=== PATIENT | male | born 1955 | race American Indian/Alaskan Native ===

== ENCOUNTER 2017-07-25 08:10 | Day surgery (SDC) | payer OTHER ==
[2017-07-25] MEDS ORDERED: NACL ONE (08:58)
[2017-07-25] MEDS ORDERED: LOPRESSOR IV ONE ×2 (09:14)
[2017-07-25] MEDS ORDERED: ATROPINE 0.1% (CARDIAC) ONE (09:15)
[2017-07-25] MEDS ORDERED: NITROSTAT SL ONE (09:45)
[2017-07-25 10:20] VITALS: BP 118/80
--- NOTE | 2017-07-25 12:26 | Cat Scan Report ---
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 COMPARISON: None similar. FINDINGS: A limited chest CT scan was carried out for calcium evaluation of the coronary arteries per coronary angiography CT protocol. The cardiac portion of the exam would be interpreted by the metal reclamation kettle tender. This dictation is for the non-cardiac portion of the chest which was included. No definite hilar or mediastinal mass. Visualized lungs are well-expanded. Nonspecific distal esophageal wall prominence/thickening, not excluded for gastroesophageal reflux and/or hiatal hernia, amongst others. Age-appropriate bones. IMPRESSION: Unremarkable limited CT of the chest. Few incidental findings, as above. Thank you for the opportunity to participate in this patient's care.
== END 2017-07-25 10:07 | disposition home or self-care (01) ==
LOC: CATHLABREC 08:10
PROVIDERS: ATTEND Internal Medicine Cardiovascular Disease
DX: R94.39 Abnormal result of other cardiovascular function study (principal)
CPT/HCPCS: 75574; Q9967; J0461